=== PATIENT | female | born 1960 | race Hispanic/Latino ===

== ENCOUNTER 2018-10-31 00:47 | Emergency (ER) | payer BC ==
[~2018-10-31] VITALS: Ht 144.8 cm; Wt 56.8 kg
[~2018-10-31 00:47] MED LIST: ASPIRIN EC81 MG PO; LEVOTHYROXIN50 MCG PO; NO HOME MEDS; PRILOSEC40 MG PO
[2018-10-31 01:56] LABS: INFLUENZA B NONE DETECTED (NONE DETECT)
[2018-10-31] MEDS ORDERED: AMOXICILLIN500 MG PO (02:15)
[2018-10-31 02:53] VITALS: BP 135/77
== END 2018-10-31 02:53 | disposition home or self-care (01) | DRG 153 ==
LOC: ED 00:47
PROVIDERS: Emergency Medicine
DX: J02.0 Streptococcal pharyngitis (principal); E03.9 Hypothyroidism, unspecified; E78.00 Pure hypercholesterolemia, unspecified

== ENCOUNTER 2021-08-10 21:14 | Emergency (ER) | payer BC ==
[~2021-08-10] VITALS: Ht 144.8 cm; Wt 59.0 kg
[~2021-08-10 21:14] MED LIST changes: +AMOXICILLIN500 MG PO
[2021-08-10] MEDS ORDERED: HYDROXYZ HCL25 MG PO (21:30)
[2021-08-10] MEDS ORDERED: PREDNISONE1 MG PO (21:31)
[2021-08-10 22:02] LABS: HEMATOCRIT 39.6 % (37.0-47.0); HEMOGLOBIN 13.2 g/dl (12.0-16.0); IMMATURE GRANULOCYTES 0.3 % (0.0-5.0); MEAN CELL VOLUME 92.1 fL CALC (80.0-100.0); MEAN CORPUSCULAR HGB 30.7 pG CALC (26.0-32.0); MEAN CORPUSCULAR HGB CONC 33.3 g/dL CAL (32.0-36.0); NEUT# 4.87 thou/uL (2.00-7.15); RED BLOOD COUNT 4.3 mill/uL (4.20-5.60); RED CELL DISTRI WIDTH 11.9 % (11.5-15.5)
[2021-08-10 22:03] LABS: URINE BILIRUBIN - DIPSTICK NEGATIVE (NEGATIVE); URINE BLOOD DIPSTICK TRACE-INTACT (NEGATIVE); URINE COLOR YELLOW; URINE GLUCOSE - DIPSTICK NEGATIVE (NEGATIVE); URINE KETONE NEGATIVE (NEGATIVE); URINE LEUK ESTERASE NEGATIVE (NEGATIVE); URINE PROTEIN - DIPSTICK NEGATIVE (NEG-TRACE); URINE UROBILINOGEN - DIPSTICK 0.2 E.U./dL (0.2)
[2021-08-10 22:08] LABS: URINE NITRITE - DIPSTICK NEGATIVE (Negative)
[2021-08-10] MEDS ORDERED: TRIAMCINOLON0.11 EX (22:13)
[2021-08-10 22:19] LABS: ALBUMIN 4.2 g/dL (3.2-5.0); ALKALINE PHOSPHATASE 74 u/l (38-126); ANION GAP 11 (6-22 (CALC)); BUN 21 mg/dL (7-17); BUN/CREATININE RATIO 42 (12-20 (CALC)); CARBON DIOXIDE 27 mmol/l (22-30); CHLORIDE 103 mmol/l (95-108); CPK 129 u/l (30-165); CREATININE 0.5 mg/dL (0.5-1.0); GFR > 60 ML/MIN (>=60 (CALC)); GFR FOR AFR.AMER. > 60 ML/MIN (>=60 (CALC)); MAGNESIUM 2.2 mg/dL (1.6-2.3); POTASSIUM 3.7 mmol/l (3.5-5.1); SGOT/AST 27 u/l (14-36); SODIUM 138 mmol/l (137-146); TOTAL PROTEIN 7.4 g/dL (6.3-8.2)
[2021-08-10 22:31] LABS: MYOGLOBIN 58 ng/mL (0 - 62)
[2021-08-10 22:38] LABS: BILIRUBIN, TOTAL 0.1 mg/dL (0.0-1.4)
[2021-08-10 22:49] LABS: TSH, 3RD GENERATION 2.08 uIU/mL (0.47 - 4.68)
[2021-08-10 23:10] VITALS: BP 138/71
== END 2021-08-10 23:10 | disposition home or self-care (01) | DRG 948 ==
LOC: ED 21:14
PROVIDERS: Family Medicine
DX: R53.1 Weakness (principal); R23.2 Flushing; R53.83 Other fatigue; T50.905A Adverse effect of unspecified drugs, medicaments and biological substances, initial encounter; R21 Rash and other nonspecific skin eruption; E03.9 Hypothyroidism, unspecified; E78.00 Pure hypercholesterolemia, unspecified

== ENCOUNTER 2023-03-05 12:01 | Emergency (ER) | payer OTHER ==
[~2023-03-05] VITALS: Ht 144.8 cm; Wt 68.2 kg
[~2023-03-05 12:01] MED LIST changes: +HYDROXYZ HCL25 MG PO; +PREDNISONE1 MG PO; +TRIAMCINOLON0.11 EX
[2023-03-05 12:11] VITALS: BP 114/56
[2023-03-05 12:50] LABS: BASO% 0.3 % (0-3); EOS% 2.2 % (0-8); HEMATOCRIT 40.4 % (37.0-47.0); IMMATURE GRANULOCYTES 0.1 % (0.0-5.0); LYMPH% 26.2 % (15-41); MEAN CELL VOLUME 92.2 fL CALC (80.0-100.0); MEAN CORPUSCULAR HGB 29.7 pG CALC (26.0-32.0); MEAN CORPUSCULAR HGB CONC 32.2 g/dL CAL (32.0-36.0); MONO% 7.3 % (2-13); NEUT# 4.63 thou/uL (2.00-7.15); NEUT% 63.9 % (42-76); RED BLOOD COUNT 4.38 mill/uL (4.20-5.60); RED CELL DISTRI WIDTH 11.9 % (11.5-15.5)
[2023-03-05 13:00] LABS: ALBUMIN 4.5 g/dL (3.2-5.0); ALKALINE PHOSPHATASE 87 u/l (38-126); ANION GAP 13 (6-22 (CALC)); BUN 12 mg/dL (7-17); BUN/CREATININE RATIO 23 (12-20 (CALC)); CARBON DIOXIDE 26 mmol/l (22-30); CHLORIDE 105 mmol/l (95-108); CREATININE 0.5 mg/dL (0.5-1.0); GFR FOR AFR.AMER. > 60 ML/MIN (>=60 (CALC)); GFR OTHER RACES > 60 ML/MIN (>=60 (CALC)); POTASSIUM 4.3 mmol/l (3.5-5.1); SGOT/AST 24 u/l (14-36); SODIUM 140 mmol/l (137-146); TOTAL PROTEIN 7.4 g/dL (6.3-8.2)
[2023-03-05 13:07] LABS: BILIRUBIN, TOTAL 0.3 mg/dL (0.02-1.3)
[2023-03-05 13:50] LABS: TSH, 3RD GENERATION 1.44 uIU/mL (0.47 - 4.68)
[2023-03-05] MEDS ORDERED: PREDNISONE50 MG PO (16:09)
[2023-03-05] MEDS ORDERED: ALLERGY RELF10 M3 PO (16:09)
[2023-03-05] MEDS ORDERED: EPIPEN 2-P0.3 MG/0.3 IM (16:09)
[2023-03-05 17:31] VITALS: BP 114/56
== END 2023-03-05 17:39 | disposition home or self-care (01) | DRG 916 ==
LOC: ED 12:01
PROVIDERS: Family Medicine
DX: T78.3XXA Angioneurotic edema, initial encounter (principal); E03.9 Hypothyroidism, unspecified; X58.XXXA Exposure to other specified factors, initial encounter; Z20.822 Contact with and (suspected) exposure to COVID-19; J02.9 Acute pharyngitis, unspecified

== ENCOUNTER 2024-09-08 19:33 | Emergency (ER) | payer OTHER ==
[~2024-09-08] VITALS: Ht 144.8 cm; Wt 75.0 kg
[2024-09-08] VITALS (9 sets, daily range): BP systolic 116–153; BP diastolic 41–71
[~2024-09-08 19:33] MED LIST changes: +ALLERGY RELF10 M3 PO; +EPIPEN 2-P0.3 MG/0.3 IM; +PREDNISONE50 MG PO
[2024-09-08] MEDS ORDERED: KETOROLAC TROMETHAMINE 30 MG/ML SDV IV ONE (19:55)
[2024-09-08] MEDS ORDERED: SODIUM CHLORIDE 0.9% 1,000 ML IV STA (19:55)
[2024-09-08] MEDS ORDERED: ACETAMINOPHEN 500 MG TAB PO ONE (19:55)
[2024-09-08 20:11] LABS: BASO% 0.3 % (0-3); EOS% 4.1 % (0-8); HEMATOCRIT 39.5 % (37.0-47.0); HEMOGLOBIN 13.2 g/dl (12.0-16.0); IMMATURE GRANULOCYTES 0.1 % (0.0-5.0); LYMPH% 38.3 % (15-41); MEAN CELL VOLUME 91.9 fL CALC (80.0-100.0); MEAN CORPUSCULAR HGB 30.7 pG CALC (26.0-32.0); MEAN CORPUSCULAR HGB CONC 33.4 g/dL CAL (32.0-36.0); MONO% 6.6 % (2-13); NEUT# 3.91 thou/uL (2.00-7.15); NEUT% 50.6 % (42-76); RED BLOOD COUNT 4.3 mill/uL (4.20-5.60); RED CELL DISTRI WIDTH 11.9 % (11.5-15.5)
[2024-09-08 20:25] LABS: ALBUMIN 4.3 g/dL (3.2-5.0); BILIRUBIN, TOTAL 0.4 mg/dL (0.02-1.3); CREATININE 0.7 mg/dL (0.5-1.0); TOTAL PROTEIN 7.4 g/dL (6.3-8.2)
[2024-09-08 21:26] LABS: URINE BILIRUBIN - DIPSTICK Negative (NEGATIVE); URINE BLOOD DIPSTICK Trace-lysed (NEGATIVE); URINE GLUCOSE - DIPSTICK Negative (NEGATIVE); URINE KETONE Negative (NEGATIVE); URINE LEUK ESTERASE Trace (NEGATIVE); URINE NITRITE - DIPSTICK Negative (Negative); URINE PROTEIN - DIPSTICK Negative (NEG-TRACE); URINE UROBILINOGEN - DIPSTICK 0.2 E.U./dL (0.2)
[2024-09-08 21:33] LABS: URINE COLOR Yellow
[2024-09-08] MEDS ORDERED: MIRALAX17 GM PO (22:24)
[2024-09-08] MEDS ORDERED: Polyethylene Glycol 3350 17 GM/PKT PO ONE (22:25)
[2024-09-08] MEDS ORDERED: MAGNESIUM CITRATE 296 ML/BTL PO ONE (22:25)
== END 2024-09-08 23:14 | disposition home or self-care (01) | DRG 392 ==
LOC: ED 19:33
PROVIDERS: Family Medicine
DX: K59.00 Constipation, unspecified (principal); E03.9 Hypothyroidism, unspecified; E78.00 Pure hypercholesterolemia, unspecified